=== PATIENT | female | born 1980 | race Asian ===

== ENCOUNTER 2018-08-09 13:04 | Outpatient (CLI) | payer OTHER ==
--- NOTE | 2018-08-09 14:38 | MMO ---
BILATERAL SCREENING MAMMOGRAM: DATE: 08/09/18 HISTORY: 38-year-old female for baseline screening mammography. COMPARISON: None. FINDINGS: Bilateral MLO and CC views of the breasts show scattered fibroglandular breast tissue. A few benign-a ppearing calcifications are seen in the left breast. There is no evidence of suspicious mass, suspic ious cluster of microcalcifications, or area of architectural distortion. Interpretation of this mammogram was performed with the assistance of computer-aided detection. IMPRESSION: BIRADS 2: Benign Finding(s) Annual screening mammography is recommended. POS: [facility]
== END 2018-08-09 13:05 | disposition home or self-care (01) ==
LOC: SCSMAMMO 13:04
PROVIDERS: ATTEND Family Medicine
DX: Z12.31 Encounter for screening mammogram for malignant neoplasm of breast (principal)
CPT/HCPCS: 77067